=== PATIENT | female | born 1945 | race Caucasian/White ===

== ENCOUNTER 2016-08-18 08:32 | Inpatient (IN) | payer MEDICARE, OTHER ==
[~2016-08-18] VITALS: Ht 172.7 cm; Wt 65.8 kg
--- NOTE | 2016-08-21 13:18 | ER ---
ADMIT: 08/18/2016 RM/LOC: ER [facility] MR#: [id number] [address] [address] [place] [address] Emergency Room Report SEX: F AGE: 71 : 1945 DATE: 08/18/2016 TIME: 0832 hours. Please refer to my T-sheet for complete H and P. HISTORY OF PRESENT ILLNESS: Briefly, the patient is a 71-year-old, who comes in with weakness and kind of fell down. She has severe dementia. She is unable to give us a history or review of systems. She lives in care facility. She does not smoke. PHYSICAL EXAMINATION: VITAL SIGNS: Blood pressure 126/87, pulse respirations 18, temp 98.3, sat 98%. GENERAL: No acute distress. HEENT: Grossly normal. LUNGS: Slightly coarse. HEART: Regular. ABDOMEN: Soft. EXTREMITIES: She seems to have some pain in her right leg, very minimal. No gross deformity. Neurovascularly intact distally. NEURO: She is confused. Nonfocal. EMERGENCY DEPARTMENT COURSE: X-ray of her pelvis showed no obvious fracture. I did a CT scan of her chest that revealed bibasilar infiltrates, but no PE. We upgraded her to the sepsis secondary to her pneumonia. We placed her on oxygen. Gave her the fluid bolus. Started antibiotics after blood cultures. She will be admitted. Her CBC is normal except white count 14. Chemistry is normal except glucose 153. Blood cultures x2 were sent. ASSESSMENT: 1. Bilateral basilar pneumonia. 2. Fall. 3. Hypoxia, requiring oxygen. PLAN: Admit to the hospital. Herve Martinez MD/ mark JOB #: [id number] CC: Herve Martinez MD, Attending Physician Jerson Gauthier MD, Family Physician
[2016-09-04] MEDS ORDERED: ALIGN4 MG PO (14:51)
[2016-09-04] MEDS ORDERED: CELEXA40 MG PO (14:51)
[2016-09-04] MEDS ORDERED: NAMENDA XR28 MG PO (14:51)
[2016-09-04] MEDS ORDERED: FLAGYL-DPS500 MG PO (14:51)
[2016-09-04] MEDS ORDERED: KLOR-CON M2020 ME1 PO (14:51)
[2016-09-04] MEDS ORDERED: VASOTEC DPS20 MG PO (14:52)
[2016-09-04] MEDS ORDERED: NORVASC DPS10 MG PO (14:52)
[2016-09-04] MEDS ORDERED: SYNTHROID DP0.075 MG PO (14:52)
[2016-09-04] MEDS ORDERED: TYLENOL DPS325 MG PO (14:53)
[2016-09-04] MEDS ORDERED: MAALOX DPS30 ML PO (14:53)
[2016-09-04] MEDS ORDERED: LOTRIMIN 1% DPS30 ML TP (14:53)
[2016-09-04] MEDS ORDERED: ARICEPT5 MG PO (14:56)
--- NOTE | 2016-09-14 11:46 | HP ---
ADMIT: 08/18/2016 RM/LOC: 512 [facility] MR#: [id number] [address] [address] [place] [address] History and Physical SEX: F AGE: 71 : 1945 DATE OF SERVICE: CHIEF COMPLAINT: Fall, mental status change. HISTORY OF PRESENT ILLNESS: This is a very pleasant, 71-year-old white female, who was recently admitted at [facility] for rapidly progressing dementia who apparently developed some vomiting and diarrhea through the night last night. She was more confused this morning, went to get up out of the chair and fell. She was transported to the emergency room where workup revealed bilateral pneumonia, but no obvious fracture, therefore she is admitted for further workup and stabilization. PAST MEDICAL HISTORY: Remarkable for hypertension, hypothyroidism, osteoporosis, depression, seasonal allergies, DJD, dementia thought likely secondary diffuse Lewy body disease. CURRENT MEDICATIONS: Include: 1. Namenda XR 28 mg daily. 2. Enalapril 10 mg daily. 3. Citalopram 40 mg daily. 4. Aricept 10 mg daily. 5. Potassium chloride ER 20 mEq b.i.d. 6. Levothyroxine 75 mcg daily. 7. Cipro 5 mg b.i.d. 8. Lotrimin cream to groin b.i.d. 9. Tylenol 500 mg 2 tabs q.6 hours p.r.n. ALLERGIES: SULFA. FAMILY HISTORY: Father had dementia and diabetes. Paternal uncle with dementia. Mother had cancer of unknown type. SOCIAL HISTORY: She is . is involved in her care. She does not smoke or regularly use alcohol. REVIEW OF SYSTEMS: GENERAL: No fevers or chills. HEENT: No headaches, blurred vision, double vision. CARDIAC: No chest pains. PULMONARY: No shortness of breath. GI: Has had nausea, vomiting, and diarrhea. : No dysuria, urgency, or frequency. ENDOCRINE: No polyuria, polydipsia. PSYCH: History of dementia. All others are negative. OBJECTIVE: VITAL SIGNS: Blood pressure is 145/88, pulse 96, respirations 19, and temp 99.8. GENERAL: She is in no acute distress. She is lying in hospital bed. Does answer yes no questions, but has difficulty opening her eyes. She is a little bit fidgety and she is disoriented, which is her baseline. ADMIT: 08/18/2016 RM/LOC: 512 [facility] MR#: [id number] [address] [address] [place] [address] History and Physical SEX: F AGE: 71 : 1945 HEENT: Pupils are reactive. Conjunctivae clear. Mild drying of the mucous membranes. NECK: Soft and supple without lymphadenopathy. No thyromegaly. LUNGS: Clear to auscultation with normal respiratory effort. HEART: Regular rate and rhythm. ABDOMEN: Soft. It is diffusely tender. No rebound. No guarding. Nonacute abdomen. EXTREMITIES: No cyanosis, no clubbing, no edema. LAB/X-RAY DATA: The CTA shows bilateral lower lobe opacities concerning for pneumonia. Pelvis x-rays were negative for any fracture or dislocation. White count 14,000, hemoglobin 15.5, and platelets 299,000. Urinalysis showed 1+ bilirubin and trace blood. Sodium 144, potassium 4.5, chloride 109, CO2 of 30, BUN 14, creatinine 1.0, glucose 153, calcium 8.9, inorganic phosphorus 3.5, total bilirubin is 0.7, total protein 6.6, albumin 3.1, alkaline phosphatase 126, AST 41, ALT 43, magnesium 1.8. CK 30, MB 1.0, relative index 3.3. Troponin I is 0.027. Lactic acid is 1.1. Procalcitonin was 0.17. ASSESSMENT: 1. Bilateral pneumonia. 2. Advanced diffuse Lewy body dementia. 3. Mental status changes secondary to #1. 4. Hypertension. 5. Hypothyroidism. 6. Depression. PLAN: We will admit to tele. We will check a CT scan of her head. Start IV Rocephin and Zithromax. Lovenox for DVT prophylaxis. Gently rehydrate. Did confirm DNR/DNI status with her who is here today. We will certainly honor their wishes. Jerson Gauthier MD/ mark JOB #: [id number] CC: Jerson Gauthier, Attending Physician Jerson Gauthier, Family Physician
--- NOTE | 2016-10-13 16:18 | DS ---
ADMIT: 08/18/2016 RM/LOC: 512 [facility] MR#: [id number] [address] [address] [place] [address] Discharge Summary SEX: F AGE: 71 : 1945 ADMISSION DATE: 08/18/2016 DISCHARGE DATE: 08/22/2016 FINAL DIAGNOSES: 1. Bilateral pneumonia. 2. Diffuse Lewy body dementia. 3. Mental status change secondary to number one. 4. Hypertension. 5. Hypothyroidism. 6. Depression. 7. Norovirus enteritis. 8. Hypokalemia. REASON FOR ADMISSION: This is a 71-year-old white female, who resides at [facility], who staff noted had increasing mental status change, confusion, difficulty with eating and was falling. Workup in the ER revealed bilateral pneumonia, therefore she was being admitted for further workup and stabilization. HOSPITAL COURSE: Was admitted on 08/18/2016, started on IV Rocephin and Zithromax. Rehydrated with IV normal saline. DNR/DNI status was continued per her 's wishes. Lovenox was used for DVT prophylaxis. We did CT scan of her head that did not show any acute changes. On 08/19, she was having a lot of loose stools so we did do a stool study. Ultimately came back positive for norovirus enteritis. PT and speech therapy continued to follow with her. On 08/20, her pressures were running a little bit higher so we did increase her Vasotec and added Norvasc. We changed IV fluids to normal saline. Potassium was a little bit low, this was replaced orally. Zithromax was changed to p.o. and her Rocephin was discontinued. On 08/21, she had continued to stool. Her pressure was still high so we did increase her Norvasc a bit more. With her frequent stooling, there was still concern that she was going to go back and be dehydrated. On 08/22, she was looking better, she was eating better, still was not ambulating much. We increased her Norvasc up to 10 mg daily. We asked that [facility] come and visit her tomorrow to assess to see if they could meet her needs and they felt that they could. She was subsequent discharged on 08/22. DISCHARGE MEDICATIONS: Discharge medications include: ADMIT: 08/18/2016 RM/LOC: 512 [facility] MR#: [id number] [address] [address] [place] [address] Discharge Summary SEX: F AGE: 71 : 1945 1. Aricept 10 mg at bedtime. 2. Celexa 40 mg daily. 3. Namenda XR 28 mg daily. 4. Norvasc 10 mg daily. 5. Synthroid 0.075 mg daily. 6. Vasotec 20 mg daily. 7. Zithromax 250 mg daily for 3 more days. 8. Lotrimin applied to groin b.i.d. 9. Tylenol 500 mg two tabs q.6 hours p.r.n. DISCHARGE INSTRUCTIONS: Follow up with Dr. Gauthier in one week. Regular diet. PT/OT and speech therapy to follow. Continue her DNR/DNI status. Jerson Gauthier MD/ dariang JOB #: [id number] CC: Jerson Gauthier MD, Attending Physician Jerson Gauthier MD, Family Physician
== END 2016-08-22 16:30 | disposition home or self-care (01) | DRG 194 ==
LOC: ER 08:32 → 5MS 10:25
PROVIDERS: ADMIT Family Medicine
DX: J18.9 Pneumonia, unspecified organism (principal); A08.11 Acute gastroenteropathy due to Norwalk agent; G31.83 Neurocognitive disorder with Lewy bodies; F02.80 Dementia in other diseases classified elsewhere, unspecified severity, without behavioral disturbance, psychotic disturbance, mood disturbance, and anxiety; I10 Essential (primary) hypertension; E87.6 Hypokalemia; R09.02 Hypoxemia; E03.9 Hypothyroidism, unspecified; M81.0 Age-related osteoporosis without current pathological fracture; F32.9 Major depressive disorder, single episode, unspecified; M19.90 Unspecified osteoarthritis, unspecified site; Z66 Do not resuscitate

== ENCOUNTER 2016-08-28 13:30 | Inpatient (IN) | payer MEDICARE, OTHER ==
[~2016-08-28] VITALS: Ht 172.7 cm; Wt 60.5 kg
--- NOTE | 2016-09-03 08:32 | CO ---
ADMIT: 08/28/2016 RM/LOC: 532 [facility] MR#: [id number] [address] [address] [place] [address] Consultation SEX: F AGE: 71 : 1945 DATE OF CONSULTATION: 09/02/2016 ATTENDING PHYSICIAN: Jerson Gauthier CONSULTING PHYSICIAN: Leilani Leavitt APRN TIME IN: 0920 hours. TIME-OUT: 1030 hours. REASON FOR CONSULTATION: Supportive care consultation was requested by Dr. Hummel for discussion of goals for care. HISTORY OF PRESENT ILLNESS: Mrs. Kelley is a 71-year-old female with the unfortunate history of rapid onset dementia. Most recently, she has been living at [facility]. She was hospitalized here in early August with pneumonia and also Norovirus. She was discharged back to her facility on August 22 and according to her , has not really been doing all that well there. She has not been eating well or drinking well. Additionally, she sleeps most of the time. She was readmitted to the hospital on August 28 with diarrhea and weakness as well as hypokalemia. She was found to be C. diff positive and is receiving treatment for this. Apparently, the patient's facility has discussed hospice care with the patient's even prior to this hospital stay. Due to her complexities, supportive care consultation was requested to discuss goals for care. In terms of advanced directives, the patient is a do not resuscitate/do not intubate status. The patient's next of kin, medical decision maker is her , Naren Kelley, whose phone is #[phone]. I do not see that she has a living will or POLST form on file. Symptomatically, the patient appears comfortable. She is very weak and debilitated. She is sleepy. She is not eating well. She is confused. PAST MEDICAL HISTORY: 1. Dementia. 2. Depression. 3. Hypothyroidism. 4. Hypertension. 5. Recent hospitalization for pneumonia. 6. Norovirus this month and current C. difficile. ALLERGIES: THE PATIENT IS ALLERGIC TO SULFA. CURRENT MEDICATIONS: Please see the patient's MAR for specific routes and dosages. Her current medications are as follows: 1. Potassium chloride. 2. Lovenox. 3. Vasotec. ADMIT: 08/28/2016 RM/LOC: 532 [facility] MR#: [id number] [address] [address] [place] [address] Consultation SEX: F AGE: 71 : 1945 4. Lotrimin. 5. Norvasc. 6. Synthroid. 7. Celexa. 8. Aricept. 9. Namenda. 10.Extra-Strength Tylenol. 11.Culturelle. 12.Flagyl. 13.Normal saline. 14.Maalox. 15.Tylenol. 16.Colace. SOCIAL HISTORY: The patient is . She has been to her for 51 years. She does not use alcohol or tobacco. 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 FAMILY HISTORY: Significant for dementia. FUNCTIONAL REVIEW: Prior to her hospital stay, she could ambulate what sounds to be short distances with assistance. She was requiring pretty much total care. She was not eating well. She was confused. Her palliative performance scale prior to admission was around 40% to 50%. Currently, she is mostly in the chair. She is requiring total care to mainly assistance. Her intake is reduced. She is confused. Her palliative performance scale currently is 30% to 40%. It is of note that she has demonstrated weight loss over the course of the month. She did weigh 145 pounds on August 22 and today, she is weighing 133 pounds. REVIEW OF SYSTEMS: A 10-point review of systems was attempted. However, due to the patient's mentation, this was unable to be obtained. PHYSICAL EXAMINATION: GENERAL: The patient is examined in the chair. She is in no acute distress. VITAL SIGNS: Temperature 96.8, pulse 83, respirations 16, blood pressure 125/56, and oxygen 93% on room air. HEENT: Head is normocephalic. Pupils are 3 mm bilaterally and brisk. Oral mucosa pink and moist with fair dentition. NECK: Supple. RESPIRATORY: Respirations are equal and nonlabored. LUNGS: Clear. CARDIOVASCULAR: Rate and rhythm regular without murmurs, rubs, or gallops. A 1+ bilateral lower extremity edema noted. GASTROINTESTINAL: Soft and nontender. Bowel sounds are positive. She is stooling. ADMIT: 08/28/2016 RM/LOC: 532 [facility] MR#: [id number] [address] [place] [id number] [place] [address] Consultation SEX: F AGE: 71 : 1945 MUSCULOSKELETAL: Generalized weakness. No obvious joint deformities. INTEGUMENTARY: Skin turgor is fair. NEUROLOGIC: Disoriented to place and time. She does seem to recognize her . She is able to answer yes/no questions. She is not extensively verbal for me. PSYCHIATRIC: Calm and cooperative. Obvious dementia noted. DIAGNOSTIC DATA: Sodium 144, potassium 4.3, BUN 4, and creatinine 0.6. Total protein 6.5, albumin 2.8, alkaline phosphatase 157, AST 61, and ALT 94. WBC is 11.9, hemoglobin 14.1, hematocrit 44.4, and platelets are 578. IMPRESSION: 1. Physical debility. 2. Decreased oral intake. 3. Malaise. 4. Fatigue. 5. Weight loss of around 8% in the last month. 6. Difficulty coping. 7. Moderate protein-calorie malnutrition. 8. Dementia with a FAST score of at least 7a. 9. Clostridium difficile colitis. 10.Recent pneumonia. 11.Palliative Care. 12.The patient is a DNR/DNI. PLAN: 1. At the time of assessment, the patient is obviously confused per baseline and unable to participate in medical decision making. I was able to meet with the patient's outside the room. He describes a significant decline in the patient's status, particularly over the course of the past month. He states that she has not been eating well and sleeps the majority of the day. He notes that she has become progressively weaker. He does state that the facility that the patient resides at has approached him regarding potential hospice admission for the patient. We did extensively review the hospice philosophy and benefit. Overall, the patient's states that her quality of life is poor and he feels that she is declining rapidly. In terms of goals for the time ahead, he states that comfort and quality of life is of the utmost importance. We did discuss rehospitalization in the setting of hospice and he is aware that hospice generally does not have patients send to the hospital for aggressive evaluation and treatment, particularly for infections and those kinds of things. He would want oral treatment of infection if possible on hospice care if they decide to go that route. He does feel that hospitalizing the patient is very difficult on her and therefore, a goal of no rehospitalization would fit their philosophy. At this time, he is leaning toward going into hospice care, however, he wants to talk with Dr. Hummel before making any decisions. The patient may be hospice eligible with her significant weight loss of around 8% in the last month ADMIT: 08/28/2016 RM/LOC: 532 [facility] MR#: [id number] [address] [address] [place] [facility] [place] [address] Consultation SEX: F AGE: 71 : 1945 as well as her poor oral intake, recent infections, and ongoing and increasing debility. I will defer to Dr. Lainez regarding direction on this and await her direction after she talks with the patient's . The patient's does agree to ongoing discussions at the time ahead. 2. I did confirm that the patient is a do not resuscitate/do not intubate status with the patient's . 3. Overall, the patient is comfortable. No symptom needs are identified at this time. 4. We will continue to follow along in the care of this patient and assist with goals for care. We would like to thank Dr. Lainez for the invitation to participate in this patient's care. Total consultation time was 70 minutes from 0920 hours to 1030 hours with 40 minutes from 0930 hours to 1010 hours spent [id number] with the patient and her family discussing goals for care and providing counseling and support. I did notify Dr. Lainez office that the patient's wishes to speak with her and I have also updated Social Work and Nursing. Leilani Leavitt APRN/ mark JOB #: [id number] CC: Jerson Gauthier, Attending Physician Jerson Gauthier, Family Physician
[2016-09-04] MEDS ORDERED: NAMENDA XR28 MG PO (14:51)
[2016-09-04] MEDS ORDERED: KLOR-CON M2020 ME1 PO (14:51)
[2016-09-04] MEDS ORDERED: ALIGN4 MG PO (14:51)
[2016-09-04] MEDS ORDERED: FLAGYL-DPS500 MG PO (14:51)
[2016-09-04] MEDS ORDERED: CELEXA40 MG PO (14:51)
[2016-09-04] MEDS ORDERED: NORVASC DPS10 MG PO (14:52)
[2016-09-04] MEDS ORDERED: VASOTEC DPS20 MG PO (14:52)
[2016-09-04] MEDS ORDERED: SYNTHROID DP0.075 MG PO (14:52)
[2016-09-04] MEDS ORDERED: MAALOX DPS30 ML PO (14:53)
[2016-09-04] MEDS ORDERED: TYLENOL DPS325 MG PO (14:53)
[2016-09-04] MEDS ORDERED: LOTRIMIN 1% DPS30 ML TP (14:53)
[2016-09-04] MEDS ORDERED: ARICEPT5 MG PO (14:56)
--- NOTE | 2016-09-10 10:32 | CO ---
ADMIT: 08/28/2016 RM/LOC: 532 [facility] MR#: [id number] [address] [address] [place] [address] Consultation SEX: F AGE: 71 : 1945 DATE OF CONSULTATION: 08/29/2016 ATTENDING PHYSICIAN: Jerson Gauthier CONSULTING PHYSICIAN: Candido Abel MD REASON FOR CONSULTATION: Rapid progressing dementia. HISTORY OF PRESENT ILLNESS: The patient is a 71-year-old woman, who was admitted to [facility] for delirium secondary to C. diff colitis and UTI. Her white count on admission was 21,000. She has severe diarrhea and is dehydrated. The patient was recently admitted to [facility] due to the progression of her underlying dementia. Neurology is consulted to specify the diagnosis especially in the light that she is having some progressive problems with gait and slowing, and [facility] staff is concerned about some sort of parkinsonism. The patient has a long record of visits with Neurology Clinic here in [facility]. She originally saw Dr. Burnett in February 2014 for initial consultation. At that time, it was documented that her first memory issue started about 5 years prior to it, which is 2008. At first, these were short-term memory changes. I believe that she had an MRI in 2008, which showed already large ventricles. MRI was repeated in 2014, which re-demonstrated large ventricles and atrophy. There was a mention that there is no particular change in the appearance. Of note, the patient was started on Aricept already in 2011. Namenda was started by Dr. Burnett in 2013. The patient further continued to decline and the Axona was started, which brought some mild improvement. After cessation, she had rapid worsening, which is documented by Dr. Duvall in her April 2015 note. The patient was last seen in our clinic in November [address] Macias. It is clear that all doctors over time document continuous decline of her functioning and memory. I believe that mini-mental state examination in 2015 was already 14/30. PAST MEDICAL HISTORY: Positive for dementia as discussed in history of present illness, depression, hypothyroidism, hypertension, recent hospitalization for pneumonia, and Ashanti virus a week ago. CURRENT MEDICATIONS: On outpatient basis include: 1. Tylenol. 2. Align. 3. Aricept 10 mg. 4. Norvasc. 5. Vasotec. 6. Lotrimin cream. 7. Potassium chloride. 8. Namenda XR 28 mg daily. 9. Citalopram 40 mg daily. ADMIT: 08/28/2016 RM/LOC: 532 [facility] MR#: [id number] [address] [place] [phone] [place] [address] Consultation SEX: F AGE: 71 : 1945 10.Enalapril. 11.Levothyroxine. ALLERGIES: SHE IS ALLERGIC TO SULFA. FAMILY HISTORY: Positive for strong history of dementia. Her father and paternal uncle had dementing illness. SOCIAL HISTORY: No smoking or alcohol. REVIEW OF SYSTEMS: Unobtainable secondary to the patient's clinical condition. PHYSICAL EXAMINATION: VITAL SIGNS: Temperature 98, heart rate 80, respirations 16, blood pressure 149/59, and saturation 90% on O2. GENERAL: The patient appears to be in no acute discomfort, lies comfortably in bed. HEAD: Normocephalic. NECK: Supple. CHEST: Normal respiratory rises. CARDIOVASCULAR: Regular rate and rhythm. ABDOMEN: Soft and nondistended. EXTREMITIES: No clubbing or cyanosis. NEUROLOGICAL: Limited secondary to the patient's delirium. She is oriented only to self. She is forgetful. She talks apparently with no sense to questions asked. Slurring her speech. Cranial nerve examination; reacts to bilateral visual threat. Pupils are equal and reactive. Extraocular muscles are intact on observation. Facial sensation is normal to irritation bilaterally. Face appears to be symmetric. Hearing to voice possibly intact. Uvula is midline. Palatal arch is symmetric. Shoulder shrug did not perform to commands. Tongue is midline. Motor examination, generalized weakness throughout, but hard to assess secondary to the patient's noncompliance with the examination. There is some increased tone in all 4 extremities. She is tremulous. Sensory examination; senses pain in all 4 extremities. Reflexes deferred. Coordination, unable. Gait, unable at this time. LABORATORY DATA: Reviewed in electronic medical records. CBC 21,900 and platelet count 405, otherwise unremarkable. Basic metabolic panel; potassium 2.8. Normal renal function and other electrolytes. C. diff PCR was positive for toxogenic C. difficile gene. Amylase and lipase were normal. UA shows 1+ leukocyte esterase, 14 wbc's, proteins and ketones and is hazy. Culture is pending. CT of the abdomen and pelvis reveals signs suggestive of colitis. CT of the head reviewed in person shows generalized atrophy with prominent ventricles as well as white matter changes. ASSESSMENT: 1. Delirium secondary to Clostridium difficile and urinary tract infection ADMIT: 08/28/2016 RM/LOC: 532 [facility] MR#: [id number] [address] [place] [phone] [place] [address] Consultation SEX: F AGE: 71 : 1945 in a patient with dementia, which is likely to be Alzheimer's dementia as per noted development through clinic encounters. 2. ? Parkinsonism. Cannot examine fully secondary to the patient's current delirium. PLAN: I would recommend to restart Aricept when diarrhea resolves. This can be pushed to 15 and 20 mg daily if she tolerates it. I would like to reassess her in outpatient setting once the delirium clears up, which would be appropriate probably 1 to 2 weeks after she is discharged back to [facility]. Thank you very much for this interesting consultation. Candido Abel MD/ mark JOB #: [id number] CC: Jerson Gauthier, Attending Physician Jerson Gauthier, Family Physician
--- NOTE | 2016-10-05 15:45 | HP ---
ADMIT: 08/28/2016 RM/LOC: 532 [facility] MR#: [id number] [address] [address] [place] [address] History and Physical SEX: F AGE: 71 : 1945 DATE OF SERVICE: CHIEF COMPLAINT: Diarrhea and weakness. HISTORY OF PRESENT ILLNESS: This is a 71-year-old white female, who has recently been moved to [facility] for rapid-onset dementia, thought perhaps secondary diffuse Lewy body disease, who was hospitalized last week for pneumonia and received IV antibiotics, was having some loose stools, and was also diagnosed with norovirus at that time. She was hypoxic. Her oxygen levels improved. Her respiratory status improved. Her diarrhea had all but resolved. She was transferred back to [facility] on 08/22, where she did okay up until a couple days ago when she had reactivation of her diarrhea, multiple stools per day. She has had increasing weakness, little p.o. intake. She was transferred back to the emergency room, where she was found to be hypokalemic, mild elevation of her liver enzymes, and therefore is being admitted for further workup and stabilization. PAST MEDICAL HISTORY: Remarkable for the recent hospitalization for pneumonia and norovirus, hypertension, hypothyroidism, osteoporosis, depression, seasonal allergies, DJD, and dementia which has been rapid onset. CURRENT MEDICATIONS: Include: 1. Tylenol 500 mg two tabs q.6 hours p.r.n. 2. Align one tab daily. 3. Aricept 10 mg daily. 4. Norvasc 10 mg daily. 5. Vasotec 20 mg daily. 6. Lotrimin cream to groin daily. 7. Potassium chloride 20 equivalents b.i.d. 8. Namenda XR 28 mg daily. 9. Citalopram 40 mg daily. 10.Enalapril 10 mg daily.. 11.Levothyroxine 75 mcg daily. ALLERGIES: SULFA. FAMILY HISTORY: Father with dementia and diabetes. Paternal uncle with dementia. Mother had cancer of unknown type. SOCIAL HISTORY: She is . is involved in her care. She does not smoke or drink alcohol. She lives at [facility]. REVIEW OF SYSTEMS: Unreliable secondary to mental status. PHYSICAL EXAMINATION: VITAL SIGNS: Blood pressure 130/70, pulse 84, respirations 18, temperature 96. GENERAL: She is in no acute distress. She is confused which is her baseline, but she is alert. HEENT: Pupils are reactive. Conjunctivae clear. Dry mucous membranes. ADMIT: 08/28/2016 RM/LOC: 532 [facility] MR#: [id number] [address] [place] [phone] [place] [address] History and Physical SEX: F AGE: 71 : 1945 Dentition in adequate repair. NECK: Soft and supple. LUNGS: With decreased breath sounds, but appear clear. HEART: Regular rate and rhythm. ABDOMEN: Tender diffusely. No rebound. No guarding. EXTREMITIES: No cyanosis. No clubbing. No edema. SKIN: No rashes. NEUROLOGIC: Does have advanced dementia. LAB/X-RAY DATA: Shows a white count of 21,400, hemoglobin 14.4, platelets 387,000. Sodium 136, potassium 2.5, chloride 98, CO2 of 26, BUN 11, creatinine 1.0, glucose 134, calcium 8.6, total bilirubin is 0.5, total protein 6.5, albumin 2.8, alkaline phosphatase 157, AST 61, ALT 94, magnesium 1.9. UA shows 1+ leukocyte esterase, 1+ ketones, 14 white blood cells. ASSESSMENT: 1. Dehydration. 2. Hypokalemia. 3. Dementia, rapid onset. 4. Diarrhea with recent norovirus. 5. Recent pneumonia. 6. Hypertension. 7. Urinary tract infection. PLAN: We will admit to med/surg. Continue her DNR/DNI status. We will start IV Levaquin. Stools been sent down. If it is positive for C diff, obviously we will hold the antibiotic until we have a definite culture results on the UTI. Because of her advanced dementia, which has been quite rapid onset, we will have Neurology weigh in. It has been thought previously that perhaps she had diffuse Lewy body dementia, but we will get further input from Dr. Abel if he is available and will rehydrate to replace her potassium and change treatment plan as hospital course dictates. Jerson Gauthier MD/ mark JOB #: [id number] CC: Jerson Gauthier, Attending Physician Jerson Gauthier, Family Physician
--- NOTE | 2016-10-13 01:14 | ER ---
ADMIT: 08/28/2016 [place]: [facility] [place] [id number] [address] [address] [place] [address] Emergency Room Report SEX: F AGE: 71 : 1945 DATE: 08/28/2016 ADDENDUM: See T-sheet for complete H and P. A 71-year-old female, comes in with diarrhea, weakness, and she is unable to provide review of systems as she has rapidly progressive dementia of unknown etiology at this time. PAST MEDICAL HISTORY: Significant for hypertension, depression, hypothyroid, norovirus, and rapidly progressive dementia. MEDICATIONS: See nurse's note. ALLERGIES: SULFA. SOCIAL HISTORY: She currently lives in a retirement. PHYSICAL EXAMINATION: GENERAL: The patient is alert. She is not oriented to person, place, or time. SKIN: Warm and dry. HEART: Regular rate and rhythm. LUNGS: Clear to auscultation. ABDOMEN: Soft. Mucous membranes are slightly dry. NEURO: Exam appears grossly intact. EMERGENCY DEPARTMENT COURSE: The patient was evaluated in the ER and found to have an elevated white blood cell count. Her kidney function was fine with a creatinine of 1.0. Urine did show 14 white blood cells, 1+ protein, and 1+ ketones with leukocyte esterase positive. I spoke to Dr. Gauthier, who is her primary care physician. The patient will be admitted. DIAGNOSES: 1. Rapidly progressive dementia. 2. Dehydration. 3. Hyperkalemia. 4. Diarrhea. Filemon Muñoz MD/ deal JOB #: [id number] CC: Jerson Gauthier MD, Attending Physician Jerson Gauthier MD, Family Physician
--- NOTE | 2016-10-27 07:44 | DS ---
ADMIT: 08/28/2016 RM/LOC: 532 [facility] MR#: [id number] [address] [address] [place] [address] Discharge Summary SEX: F AGE: 71 : 1945 ADMISSION DATE: 08/28/2016 DISCHARGE DATE: 09/03/2016 FINAL DIAGNOSES: 1. Dehydration. 2. Hypokalemia. 3. Dementia. 4. Chronic diarrhea. 5. Hypertension. 6. UTI (urinary tract infection). 7. C. Diff (clostridium difficile) colitis. REASON FOR ADMISSION: This is a 71-year-old white female with advanced dementia. Significant difficulties with norovirus recently who was recently treated for pneumonia. Went back to [facility], was holding her own. However, developed worsening diarrhea, increasing weakness so was brought back to the emergency room. HOSPITAL COURSE: She was admitted on 08/28/2016. Neurology was consulted. DNR/DNI status was continued per her power of contract attorney's request. We did check a stool, which was positive for C diff so we did stop the Levaquin. Placed her on p.o. Flagyl as well as a probiotic. IV fluids were decreased to 50 mL/h. She did have an enlarged uterus so we did do a pelvic ultrasound. Enoxaparin was used for DVT prophylaxis. Her potassium was a little bit low and this was replaced IV as well as orally. Neurology was consulted who felt that she was having some delirium on top of her dementia. 08/30 still stooling, no new issues, magnesium was a little bit low so this was replaced as was the potassium again. On 08/31 we did do a hospice consult. 09/01 Speech Therapy, PT and OT were following. She was not eating much. We did do a Supportive Care consult on 09/02. Stools were slowing. On 09/03 clinically was stable. Due to a poor prognosis, however, it was felt that she did qualify for hospice, and she was transferred back to [facility] with hospice care. DISCHARGE INSTRUCTIONS: 1. Celexa 40 mg daily. 2. Align 1 tab daily. ADMIT: 08/28/2016 RM/LOC: 532 [facility] MR#: [id number] [address] [address] [place] [address] Discharge Summary SEX: F AGE: 71 : 1945 3. Flagyl 500 mg t.i.d. through 09/11/2016. 4. Klor-Con 20 mEq 2 tabs b.i.d. 5. Namenda XR 28 mg daily. 6. Norvasc 10 mg daily. 7. Synthroid 0.075 mg daily. 8. Vasotec 20 mg daily. 9. Lotrimin b.i.d. to groin. 10.Maalox 30 mL q.6 hours p.r.n. 11.Tylenol 325 mg 2 tabs q.4 hours p.r.n. 12.Tylenol liquid 650 q.4 hours p.r.n. 13.Aricept 15 mg daily. Diet as tolerates. Follow up with Dr. Gauthier 09/12. DNR/DNI. Jerson Gauthier MD/ ronna JOB #: [id number] CC: Jerson Gauthier MD, Attending Physician Jerson Gauthier MD, Family Physician
== END 2016-09-03 13:45 | disposition short-term general hospital (02) | DRG 372 ==
LOC: ER 13:30 → 5MS 15:25
PROVIDERS: ADMIT Family Medicine
DX: A04.7 Enterocolitis due to Clostridium difficile (principal); E44.0 Moderate protein-calorie malnutrition; N39.0 Urinary tract infection, site not specified; E86.0 Dehydration; G30.9 Alzheimer's disease, unspecified; R41.0 Disorientation, unspecified; F02.80 Dementia in other diseases classified elsewhere, unspecified severity, without behavioral disturbance, psychotic disturbance, mood disturbance, and anxiety; I10 Essential (primary) hypertension; E87.6 Hypokalemia; E03.9 Hypothyroidism, unspecified; M81.0 Age-related osteoporosis without current pathological fracture; F32.9 Major depressive disorder, single episode, unspecified; M19.90 Unspecified osteoarthritis, unspecified site; R19.7 Diarrhea, unspecified; Z66 Do not resuscitate